=== PATIENT | male | born 1995 | race Caucasian/White ===

== ENCOUNTER 2017-02-11 02:11 | Emergency (ER) | payer SELFPAY ==
[~2017-02-11] VITALS: Ht 167.6 cm; Wt 56.0 kg
[2017-02-11 02:25] VITALS: BP 125/74
== END 2017-02-11 03:04 | disposition left against medical advice (07) ==
LOC: ER 02:17
DX: F10.129 Alcohol abuse with intoxication, unspecified (principal); Z53.21 Procedure and treatment not carried out due to patient leaving prior to being seen by health care provider